=== PATIENT | female | born 1995 | race Caucasian/White ===

== ENCOUNTER 2023-04-24 08:57 | Emergency (ER) | payer MEDICAID ==
[~2023-04-24] VITALS: Ht 170.2 cm; Wt 59.2 kg
[2023-04-24 08:58] VITALS: BP 139/82; PULSE 62; TEMP 97.8; O2SAT 100
[2023-04-24] MEDS ORDERED: diphenhydrAMINE 50 mg/ml inj IM ONE (10:40)
[2023-04-24] MEDS ORDERED: metoclopramide 5 mg/ml inj IM ONE (10:40)
[2023-04-24] MEDS ORDERED: ketorolac tromethamine 15mg/ml inj. IM ONE (10:40)
[2023-04-24 11:06] VITALS: RESP 18
== END 2023-04-24 11:18 | disposition home or self-care (01) ==
LOC: ER 08:57
DX: G43.909 Migraine, unspecified, not intractable, without status migrainosus (principal)
CPT/HCPCS: 96372; 99284; J1200; J1885; J2765

== ENCOUNTER 2024-02-03 08:44 | Emergency (ER) | payer MEDICAID ==
[~2024-02-03] VITALS: Ht 165.1 cm; Wt 57.6 kg
[2024-02-03 09:43] LABS: BILIRUBIN,URINE NEGATIVE (Neg); CLARITY,URINE CLOUDY (Clear); COLOR,URINE YELLOW (Yellow); GLUCOSE, URINE NEGATIVE (Neg); KETONES,URINE NEGATIVE (Neg); LEUKOCYTE ESTERASE ,URINE NEGATIVE (Neg); NITRITES, URINE NEGATIVE (Neg); OCCULT BLOOD,URINE TRACE-INTACT (Neg); PH,URINE 7.5 (4.8-8.0); PROTEIN,URINE NEGATIVE (Neg); UROBILINOGEN,URINE 0.2 E.U/dL (0.2-1.0)
[2024-02-03 09:47] LABS: URINE HCG NEGATIVE (NEG)
[2024-02-03 09:52] LABS: UA COLLECTION TYPE CLN CATCH MIDSTREAM
[2024-02-03 09:55] LABS: SQUAMOUS EPITHELIAL CELL,UR MANY /LPF (FEW)
[2024-02-03 09:56] LABS: WBC,URINE 0-4 /HPF (0-4)
[2024-02-03 09:57] LABS: BACTERIA,URINE 3+ /HPF (Neg)
[2024-02-03] MEDS ORDERED: PHEN-716 PO (10:57)
[2024-02-03 11:04] VITALS: BP 114/60; PULSE 68; RESP 16; TEMP 98; O2SAT 98
== END 2024-02-03 11:06 | disposition home or self-care (01) ==
LOC: ER 08:45
DX: R35.89 Other polyuria (principal)
CPT/HCPCS: 81001; 81025; 99283

== ENCOUNTER 2024-05-07 18:06 | Emergency (ER) | payer MEDICAID ==
[~2024-05-07] VITALS: Ht 162.6 cm; Wt 56.8 kg
[~2024-05-07 18:06] MED LIST: PHEN-716 PO
[2024-05-07 18:24] VITALS: TEMP 98.9
[2024-05-07] MEDS ORDERED: PERM60CR19 TOP (18:46)
[2024-05-07] MEDS ORDERED: DIPH25TA62 PO (18:46)
[2024-05-07] MEDS ORDERED: TRIA15CR61 TOP (18:46)
[2024-05-07] MEDS ORDERED: PRED20TA PO (18:46)
[2024-05-07 19:08] VITALS: BP 124/74; PULSE 64; RESP 18; O2SAT 98
== END 2024-05-07 19:09 | disposition home or self-care (01) ==
LOC: ER 18:06
DX: L50.9 Urticaria, unspecified (principal); Z79.899 Other long term (current) drug therapy
CPT/HCPCS: 99283